=== PATIENT | female | born 1965 | race Caucasian/White ===

== ENCOUNTER → 2016-07-08 | Outpatient (CLI) | payer OTHER ==
[2015-03-20 08:35] VITALS: BP 137/66
[~2016-07-08] MED LIST: BLACK COHOSH PO; CALC-507 PO; CYAN10005 PO; DOCU-27 PO; GARL10002 PO; MONT10TA6 PO; MULT-245 PO; OMEG1CAP28 PO; ONDA4TAB7 PO; OXYC-323 PO; TRAM50TA PO
[2016-07-08 08:17] LABS: ALBUMIN 3.2 g/dL (3.4-5.0); ALBUMIN/GLOBULIN RATIO 1.1 (1.0-1.7); CALCIUM 8.5 mg/dL (8.5-10.1); CREATININE 0.8 mg/dL (0.6-1.0); GFR 75.9; POTASSIUM 4.2 mmol/L (3.5-5.1); TOTAL BILIRUBIN 0.2 mg/dL (0.2-1.0); TOTAL PROTEIN 6.2 g/dL (6.4-8.2)
[2016-07-08 08:23] LABS: CHOLESTEROL/HDL RATIO 4.9
[2016-07-08 12:21] LABS: ESTRADIOL LEVEL 19.9 pg/mL (.); PROGESTERONE 1.5 ng/mL (.)
[2016-07-09 03:15] LABS: VITAMIN D25(OH)TOTAL 37.2 ng/mL (30.0-100.0)
[2016-07-12 13:19] LABS: % FREE TESTOSTERONE 1.54 % (0.50-2.80); TESTOSTERONE TOTAL 26 ng/dL (3-41)
== END | disposition home or self-care (01) ==
LOC: LAB 07:35
PROVIDERS: ATTEND Nurse Practitioner Women's Health
DX: Z13.1 Encounter for screening for diabetes mellitus (principal); N95.9 Unspecified menopausal and perimenopausal disorder; I10 Essential (primary) hypertension; E78.00 Pure hypercholesterolemia, unspecified; E55.9 Vitamin D deficiency, unspecified
CPT/HCPCS: 36415; 80053; 80061; 82306; 82670; 82679; 83036; 83525; 84144; 84402; 84403

== ENCOUNTER → 2017-01-05 | Outpatient (CLI) | payer OTHER ==
[2015-03-20 08:35] VITALS: BP 137/66
[~2017-01-05] MED LIST changes: +DOCU-109 PO; -DOCU-27 PO
== END | disposition home or self-care (01) ==
LOC: SPEC 15:13
DX: N76.4 Abscess of vulva (principal)
CPT/HCPCS: 87071; 87075; 87205

== ENCOUNTER → 2017-01-07 | Outpatient (CLI) | payer OTHER ==
[2015-03-20 08:35] VITALS: BP 137/66
--- NOTE | 2017-01-10 11:54 | RAD ---
DATE: 01/07/17 EXAM: DIGITAL SCREEN BILAT W/CAD HISTORY: Routine screening COMPARISON: 09/26/15 This study was interpreted with the benefit of Computerized Aided Detection (CAD). TECHNIQUE: Routine digital CC and MLO views of both breasts are obtained. FINDINGS: Breast Density: HETERO The breast parenchyma is heterogeneously dense, which could reduce sensitivity of mammography. Breast parenchyma level C.. There is a increasing group of calcification in the left retroareolar breast, approximately 3 cm from the nipple. Interval decrease in size of previously seen nodule in the left breast consistent with decrease in size of cysts. IMPRESSION: Suspicious calcifications in the left breast. Evaluation with CC and MLO spot magnification views may be obtained. BI-RADS CATEGORY: 0 INCOMPLETE: NEED ADDITIONAL IMAGING EVALUATION AND/OR PRIOR MAMMOGRAMS FOR COMPARISON. Spot magnification CC and MLO views RECOMMENDED FOLLOW-UP: ADD ADDITIONAL IMAGING PQRS compliance statement: Patient information was entered into a reminder system with a target due date for the next mammogram. Mammography is a sensitive method for finding small breast cancers, but it does not detect them all and is not a substitute for careful clinical examination. A negative mammogram does not negate a clinically suspicious finding and should not result in delay in biopsying a clinically suspicious abnormality. "Our facility is accredited by the [employer] Mammography Program."
== END | disposition home or self-care (01) ==
LOC: MAMMO 09:58
PROVIDERS: ATTEND Family Medicine
DX: Z12.31 Encounter for screening mammogram for malignant neoplasm of breast (principal)
CPT/HCPCS: G0202; 77067

== ENCOUNTER → 2017-01-20 | Outpatient (CLI) | payer OTHER ==
[2015-03-20 08:35] VITALS: BP 137/66
[2017-01-20 14:39] LABS: FREE T4 0.96 ng/dL (0.76-1.46)
--- NOTE | 2017-01-23 08:39 | RAD ---
DATE: 01/20/2017 EXAM: DIGITAL DIAGNOSTIC LT HISTORY: Indeterminate calcifications on screening COMPARISON: Screening examination 01/07/2017 FINDINGS: Breast Density: . Coned compression magnification views targeted to the central calcifications in the left breast were obtained as well as an ML view. Known calcifications are reproduced. The calcifications are minimally suspicious. Stereotactic biopsy is recommended. The findings and recommendation for biopsy were communicated by me to the patient. IMPRESSION: Indeterminate calcifications left breast. Biopsy under stereotactic guidance recommended. BI-RADS CATEGORY: 4 SUSPICIOUS ABNORMALITY-BIOPSY SHOULD BE CONSIDERED RECOMMENDED FOLLOW-UP: BIO BIOPSY RECOMMENDED PQRS compliance statement: Patient information was entered into a reminder system with a target due date soon for the next mammogram. Mammography is a sensitive method for finding small breast cancers, but it does not detect them all and is not a substitute for careful clinical examination. A negative mammogram does not negate a clinically suspicious finding and should not result in delay in biopsying a clinically suspicious abnormality. "Our facility is accredited by the [employer] Mammography Program." DEMETRIOD
== END | disposition home or self-care (01) ==
LOC: MAMMO 13:21
PROVIDERS: ATTEND Family Medicine
DX: R92.8 Other abnormal and inconclusive findings on diagnostic imaging of breast (principal); L65.9 Nonscarring hair loss, unspecified
CPT/HCPCS: 36415; 84439; 84443; G0206; 77065

== ENCOUNTER → 2017-02-22 | Outpatient (CLI) | payer OTHER ==
[2015-03-20 08:35] VITALS: BP 137/66
[~2017-02-22] MED LIST changes: +CHOL500016 PO; +FISH1CAP PO; +GEMF600T3 PO; +LIDOCAINE 1% / SOD BICARB 8.4% 20 ML VIAL. IJ ONE; +LIDOCAINE 2%/EPI 1:100,000 20 ML VIAL. IJ ONE; +MAGN400C PO; +MULTIVITAMIN PO; +PROG200C2 PO; +[UNRECOGNIZED DRUG - OTHER] PO; +[UNRECOGNIZED DRUG - REMARK] PO
--- NOTE | 2017-02-22 09:52 | RAD ---
EXAM: 1. Stereotactically guided biopsy of left breast microcalcifications with clip placement. 2. Digital left postclip mammography. HISTORY: Indeterminate left breast microcalcifications. Stereotactic biopsy is requested. FINDINGS: The procedure along with its risks and benefits were explained to the patient. She agreed to proceed. A timeout procedure was performed. The patient's prior mammography was reviewed. The target calcifications centrally in the left breast were targeted stereotactically. The overlying skin was sterilely prepped and infiltrated with 1% lidocaine for local anesthesia. The deeper tissues were infiltrated with 2% lidocaine with epinephrine for local anesthesia and hemostasis. Under stereotactic guidance, a 9 gauge vacuum-assisted core biopsy system was advanced to the target calcifications. 6 core specimens were obtained. A specimen radiograph demonstrates the targeted calcifications within the specimen. A postbiopsy clip was placed. Instrumentation was withdrawn and pressure held to hemostasis. There were no complications. Digital mammographic images were obtained on the left in the CC and MLO projections, and interpreted on a dedicated mammographic workstation. The postbiopsy clip is slightly superior to the target calcifications, and likely migrated slightly after deployment. Some of the target calcifications in been removed. IMPRESSION: 1. Successful stereotactic biopsy of left breast microcalcifications. 2. The postbiopsy clip corresponds with the target calcifications.
--- NOTE | 2017-02-24 15:00 | PATHOLOGY ---
PATHOLOGY REPORT * * * * * * * * FINAL DIAGNOSIS: Breast tissue, left breast needle biopsies: - Intraductal papillomas with focal sclerosis, florid ductal epithelial hyperplasia, and apocrine metaplasia. - Calcifications identified. COMMENT: There are focal calcifications associated with the papilloma and surrounding breast tissue. There is no atypia or evidence of malignancy. (JPM:; 02/24/2017) REPORT ELECTRONICALLY SIGNED BY: Evert Campos M.D. DATE/TIME: 02/24/2017 15:00 * * * * * * * * GROSS PATHOLOGY: Received in formalin, in an orange cassette, labeled "Parul Diaz, left breast calcifications," are multiple needle cores of yellow-merida fibrofatty tissue measuring 2.0 x 1.1 x 0.7 cm in aggregate dimensions. The tissue is submitted in its entirety in cassette A1 and A2. The cold ischemic time is 10 minute. The total formalin fixation time is 12 hours 50 minutes. (TSD; 02/22/2017) INITIAL CPT CODE(S): A; 99304 Professional services performed by [facility] [place] [address] Technical services performed by [facility] at [address] [place] [address], [place] [address]. Dr. Prater, [facility] Radiology fax: [phone] SPECIMEN(S) RECEIVED: A.Left breast calcifications CLINICAL HISTORY: Left breast microcalcifications PATIENT: PARUL DIAZ /AGE: 912/29/1965 (Age: 51) PATIENT #: [id number] ALT CASE #: SPECIMEN COLLECTION DATE: 02/22/2017 SPECIMEN RECEIVED DATE: 02/22/2017 [facility] - [address] [place] [address] - PHONE: [phone] * * * END OF REPORT * * *
== END | disposition home or self-care (01) ==
LOC: MAMMO 07:30
PROVIDERS: ATTEND Surgery
DX: R92.0 Mammographic microcalcification found on diagnostic imaging of breast (principal); R92.1 Mammographic calcification found on diagnostic imaging of breast
CPT/HCPCS: 19085; 77022; C1713; G0206; J3490; 88305; 77065

== ENCOUNTER → 2017-05-22 | Outpatient (CLI) | payer OTHER ==
[2017-05-22 12:36] LABS: CHOLESTEROL 214 mg/dL (0-200); CHOLESTEROL/HDL RATIO 4.9; HDLC 44 mg/dL (40-60); LDLC 130 mg/dL (0-100); NON-HDL CHOLESTEROL 170 mg/dL (0-129); TRIGLYCERIDES 198 mg/dL (0-150); VLDLC 40 mg/dL (0-40)
[2017-05-22 22:13] LABS: ESTRADIOL LEVEL 97.8 pg/mL (.)
[2017-05-22 22:13] LABS: PROGESTERONE 2.6 ng/mL (.)
[2017-05-24 13:22] LABS: ESTRONE LEVEL 247 pg/mL (.)
[2017-05-26 08:25] LABS: % FREE TESTOSTERONE 1.47 % (0.50-2.80); TESTOSTERONE FREE 0.49 (0.10-0.85); TESTOSTERONE TOTAL 33 ng/dL (3-41)
== END | disposition home or self-care (01) ==
LOC: LAB 11:15
DX: E78.5 Hyperlipidemia, unspecified (principal); N95.9 Unspecified menopausal and perimenopausal disorder; E55.9 Vitamin D deficiency, unspecified
CPT/HCPCS: 36415; 80061; 82306; 82670; 82679; 84144; 84402; 84403

== ENCOUNTER 2017-06-16 07:32 | Day surgery (SDC) | payer OTHER ==
[~2017-06-16 07:32] MED LIST changes: -BLACK COHOSH PO; -CALC-507 PO; -CHOL500016 PO; -CYAN10005 PO; -DOCU-109 PO; -FISH1CAP PO; -GARL10002 PO; -GEMF600T3 PO; -LIDOCAINE 1% / SOD BICARB 8.4% 20 ML VIAL. IJ ONE; +LIDOCAINE 1% PF 2 ML VIAL. ID; -LIDOCAINE 2%/EPI 1:100,000 20 ML VIAL. IJ ONE; -MAGN400C PO; -MONT10TA6 PO; +MORPHINE SULFATE 2 MG/ML DISP.SYRIN. IV; -MULT-245 PO; -MULTIVITAMIN PO; -OMEG1CAP28 PO; -ONDA4TAB7 PO; +ONDANSETRON PF 4 MG/2 ML VIAL. IV; -OXYC-323 PO; +PROCHLORPERAZINE 10 MG/2 ML VIAL. IV; -PROG200C2 PO; -TRAM50TA PO; -[UNRECOGNIZED DRUG - OTHER] PO; -[UNRECOGNIZED DRUG - REMARK] PO; +ceFAZolin 2GM PREMIX 2 GM/50 ML BAG IV; +fentaNYL PF VIAL 100 MCG/2 ML VIAL IV
[2017-06-16] MEDS: LIDOCAINE WITH 8.4% SOD BICARB 3 ML DISP.SYRIN. INJ (08:15)
[2017-06-16] MEDS: IV RINGERS,LACTATED 1000ML 1,000 ML IV (08:48)
[2017-06-16] MEDS ORDERED: PROPOFOL 20 ML IV (10:53)
[2017-06-16] MEDS ORDERED: ONDANSETRON PF 4 MG/2 ML VIAL. (10:53)
[2017-06-16] MEDS ORDERED: FAMOTIDINE 20 MG/2 ML VIAL (10:53)
[2017-06-16] MEDS ORDERED: DEXAMETHASONE SOD PHOS 20 MG/5 ML VIAL. (10:53)
[2017-06-16] MEDS ORDERED: MIDAZOLAM HCL/PF 2 MG/2 ML VIAL. (10:54)
[2017-06-16] MEDS ORDERED: fentaNYL PF VIAL 100 MCG/2 ML VIAL (10:54)
[2017-06-16] MEDS: BUPIVAC MPF-EPI 0.5%-1:200000 30 ML VIAL. INJ (11:24)
[2017-06-16] MEDS ORDERED: SEVOFLURANE 31 TO 60 MINUTES. IH (11:46)
[2017-06-16] MEDS: fentaNYL PF VIAL 100 MCG/2 ML VIAL IV ×2 (12:19→12:25)
[2017-06-16] MEDS: oxyCODONE/APAP 5/325 1 TAB TABLET PO (13:07)
== END 2017-06-16 13:35 | disposition home or self-care (01) ==
LOC: SURG 07:32
DX: D24.2 Benign neoplasm of left breast (principal); J03.80 Acute tonsillitis due to other specified organisms; E78.00 Pure hypercholesterolemia, unspecified; M19.90 Unspecified osteoarthritis, unspecified site; F17.200 Nicotine dependence, unspecified, uncomplicated; Z91.018 Allergy to other foods; Z79.82 Long term (current) use of aspirin; Z79.899 Other long term (current) drug therapy; Z98.890 Other specified postprocedural states
CPT/HCPCS: 19281; 76098; C1769; J0690; J1100; J2250; J2405; J2704; J3010; J3490; S0028

== ENCOUNTER → 2017-08-18 | Outpatient (CLI) | payer OTHER ==
[2017-08-19 01:19] LABS: ESTRADIOL LEVEL 57.3 pg/mL (.); TESTOSTERONE TOTAL 17 ng/dL (3-41)
== END | disposition home or self-care (01) ==
LOC: LAB 15:09
DX: L65.9 Nonscarring hair loss, unspecified (principal); Z78.0 Asymptomatic menopausal state
CPT/HCPCS: 36415; 82670; 84144; 84403

== ENCOUNTER → 2017-12-22 | Outpatient (CLI) | payer OTHER ==
[2017-06-16 13:25] VITALS: BP 134/67
[~2017-12-22] MED LIST changes: +ASPI-482 PO; +BLACK COHOSH PO; +CALC-507 PO; +CHOL500016 PO; +CYAN10005 PO; +DOCU-109 PO; +ESTR0.5T PO; +FISH1CAP PO; +GARL10002 PO; +GEMF600T4 PO; -LIDOCAINE 1% PF 2 ML VIAL. ID; +MAGN400C PO; +MONT10TA6 PO; -MORPHINE SULFATE 2 MG/ML DISP.SYRIN. IV; +MULT-121 PO; +MULT-245 PO; +MULTIVITAMIN PO; +OMEG1CAP28 PO; +OMEG1CAP6 PO; +ONDA4TAB7 PO; -ONDANSETRON PF 4 MG/2 ML VIAL. IV; +OXYC-323 PO; +PRAS1TAB PO; -PROCHLORPERAZINE 10 MG/2 ML VIAL. IV; +PROG200C15 PO; +PROG200C2 PO; +TEST5GEL TP; +TRAM50TA PO; +[UNRECOGNIZED DRUG - OTHER] PO; +[UNRECOGNIZED DRUG - REMARK] PO; -ceFAZolin 2GM PREMIX 2 GM/50 ML BAG IV; -fentaNYL PF VIAL 100 MCG/2 ML VIAL IV
--- NOTE | 2017-12-22 13:47 | RAD ---
DATE: 12/22/2017 EXAM: MAMMO PARIS DIAG LT HISTORY: Follow-up benign biopsy COMPARISON: 01/07/2017, 02/22/2017 This study was interpreted with the benefit of Computerized Aided Detection (CAD). Breast Density: HETERO The breast parenchyma is heterogenously dense, which could reduce sensitivity of mammography. Breast parenchyma level C. FINDINGS: 2-D and 3-D tomosynthesis imaging was performed in CC and MLO projections. Previously seen central left breast calcifications have been removed. The fibroglandular tissues are heterogeneous and somewhat nodular in character. No new or enlarging breast densities are seen. No suspicious microcalcifications are evident. IMPRESSION: Stable left mammograms without evidence of malignancy. Follow-up bilateral mammography in 6 months and that yearly intervals is suggested. BI-RADS CATEGORY: 2 BENIGN FINDING(S) RECOMMENDED FOLLOW-UP: 12M 12 MONTH FOLLOW-UP PQRS compliance statement: Patient information was entered into a reminder system with a target due date for the next mammogram. Mammography is a sensitive method for finding small breast cancers, but it does not detect them all and is not a substitute for careful clinical examination. A negative mammogram does not negate a clinically suspicious finding and should not result in delay in biopsying a clinically suspicious abnormality. "Our facility is accredited by the [employer] Mammography Program."
== END | disposition home or self-care (01) ==
LOC: MAMMO 13:03
PROVIDERS: ATTEND Surgery
DX: R92.8 Other abnormal and inconclusive findings on diagnostic imaging of breast (principal); E55.9 Vitamin D deficiency, unspecified; I10 Essential (primary) hypertension; E78.00 Pure hypercholesterolemia, unspecified; E78.5 Hyperlipidemia, unspecified
CPT/HCPCS: 77065; G0279; 77061

== ENCOUNTER → 2018-03-09 | Outpatient (CLI) | payer OTHER ==
[2017-06-16 13:25] VITALS: BP 134/67
[~2018-03-09] MED LIST changes: -GEMF600T4 PO; +GEMF600T8 PO; -OXYC-323 PO; +OXYC1TAB15 PO
[2018-03-09 08:01] LABS: BASO # 0.1 x10^3/uL (0.0-0.2); BASO % 1 % (0-3); EOS # 0.2 x10^3/uL (0.0-0.7); EOS % 2 % (0-3); HEMATOCRIT 43.4 % (36.0-47.0); HEMOGLOBIN 15.2 g/dL (12.0-15.5); LYMPH # 1.4 x10^3/uL (1.0-4.8); LYMPH % 14 % (24-48); MEAN CORPUSCULAR HEMOGLOBIN 32 pg (25-35); MEAN CORPUSCULAR HGB CONC 35 g/dL (31-37); MEAN CORPUSCULAR VOLUME 92 fL (79-100); MONO # 0.7 x10^3/uL (0.0-1.1); MONO % 7 % (0-9); NEUT # 7.6 x10^3uL (1.8-7.7); NEUT % 76 % (31-73); PLATELET COUNT 350 x10^3/uL (140-400); RED CELL DISTRIBUTION WIDTH 13.4 % (11.5-14.5)
[2018-03-09 08:41] LABS: ALBUMIN 1.3 g/dL (3.4-5.0); ALBUMIN/GLOBULIN RATIO 0.3 (1.0-1.7); CALCIUM 7.7 mg/dL (8.5-10.1); CREATININE 0.5 mg/dL (0.6-1.0); GFR 129.6; POTASSIUM 3.7 mmol/L (3.5-5.1); TOTAL BILIRUBIN 0.2 mg/dL (0.2-1.0); TOTAL PROTEIN 5.7 g/dL (6.4-8.2)
[2018-03-09 08:42] LABS: CHOLESTEROL/HDL RATIO 1.8
[2018-03-09 08:55] LABS: FREE T4 1.05 ng/dL (0.76-1.46); THYROID STIM HORMONE (TSH) 2.06 uIU/mL (0.358-3.74)
[2018-03-09 12:19] LABS: ESTRADIOL LEVEL 11.5 pg/mL (.)
[2018-03-09 23:11] LABS: HEMOGLOBIN A1C 5.7 % (4.8-5.6)
== END | disposition home or self-care (01) ==
LOC: LAB 07:35
PROVIDERS: ATTEND Nurse Practitioner Women's Health
DX: Z13.1 Encounter for screening for diabetes mellitus (principal); E78.5 Hyperlipidemia, unspecified; E55.9 Vitamin D deficiency, unspecified; E66.3 Overweight; R53.83 Other fatigue; Z79.890 Hormone replacement therapy
CPT/HCPCS: 36415; 80053; 80061; 82306; 82652; 82670; 83036; 84144; 84402; 84403; 84439; 84443; 84481; 85025

== ENCOUNTER → 2019-02-12 | Outpatient (CLI) | payer OTHER ==
[2017-06-16 13:25] VITALS: BP 134/67
[~2019-02-12] MED LIST changes: +CYAN-25 PO; -CYAN10005 PO; +MONT10TA49 PO; -MONT10TA6 PO; +PROG200C10 PO; -PROG200C2 PO
[2019-02-12 07:57] LABS: BASO # 0.1 x10^3/uL (0.0-0.2); BASO % 1 % (0-3); EOS # 0.2 x10^3/uL (0.0-0.7); EOS % 2 % (0-3); HEMATOCRIT 46.6 % (36.0-47.0); HEMOGLOBIN 16.1 g/dL (12.0-15.5); LYMPH # 1.6 x10^3/uL (1.0-4.8); LYMPH % 18 % (24-48); MEAN CORPUSCULAR HEMOGLOBIN 32 pg (25-35); MEAN CORPUSCULAR HGB CONC 35 g/dL (31-37); MEAN CORPUSCULAR VOLUME 92 fL (79-100); MONO # 0.5 x10^3/uL (0.0-1.1); MONO % 6 % (0-9); NEUT # 6.5 x10^3/uL (1.8-7.7); NEUT % 73 % (31-73); PLATELET COUNT 295 x10^3/uL (140-400); RED BLOOD COUNT 5.05 x10^6/uL (3.50-5.40); RED CELL DISTRIBUTION WIDTH 13.3 % (11.5-14.5); WHITE BLOOD COUNT 8.9 x10^3/uL (4.0-11.0)
[2019-02-12 08:13] LABS: ALBUMIN 4.2 g/dL (3.4-5.0); CALCIUM 9.2 mg/dL (8.5-10.1); CREATININE 0.8 mg/dL (0.6-1.0); POTASSIUM 4.5 mmol/L (3.5-5.1); TOTAL BILIRUBIN 0.3 mg/dL (0.2-1.0); TOTAL PROTEIN 8.4 g/dL (6.4-8.2)
[2019-02-12 08:14] LABS: CHOLESTEROL/HDL RATIO 5.1
[2019-02-12 09:30] LABS: FREE T4 0.89 ng/dL (0.76-1.46); THYROID STIM HORMONE (TSH) 1.215 uIU/mL (0.358-3.74)
[2019-02-12 20:08] LABS: ESTRADIOL LEVEL 9.5 pg/mL (.); PROGESTERONE 2.4 ng/mL (.)
== END | disposition home or self-care (01) ==
LOC: LAB 07:35
PROVIDERS: ATTEND Nurse Practitioner Women's Health
DX: N95.9 Unspecified menopausal and perimenopausal disorder (principal); E03.9 Hypothyroidism, unspecified; R53.83 Other fatigue; E78.5 Hyperlipidemia, unspecified; E55.9 Vitamin D deficiency, unspecified; Z79.899 Other long term (current) drug therapy
CPT/HCPCS: 36415; 80053; 80061; 82306; 82627; 82670; 84144; 84402; 84403; 84439; 84443; 84481; 85025

== ENCOUNTER → 2019-02-19 | Outpatient (CLI) | payer OTHER ==
[2017-06-16 13:25] VITALS: BP 134/67
--- NOTE | 2019-02-19 09:10 | RAD ---
DATE: 02/19/2019. EXAM: MAMMO PARIS DIAG BILAT. HISTORY: Routine mammographic screening. COMPARISON: 12/22/2017, 01/07/2017. This study was interpreted with the benefit of Computerized Aided Detection (CAD). FINDINGS: Breast Density: HETERO The breast parenchyma is heterogenously dense, which could reduce sensitivity of mammography. Breast parenchyma level C.. Circumscribed and obscured nodules bilaterally have stable correlates. Architectural distortion centrally on the left corresponds with the site of prior excisional biopsy. There are no suspicious masses, microcalcifications or architectural distortion. BI-RADS CATEGORY: 2 BENIGN FINDING(S). RECOMMENDED FOLLOW-UP: 12M 12 MONTH FOLLOW-UP. PQRS compliance statement: Patient information was entered into a reminder system with a target due date 02/20/2020 for the next mammogram. Mammography is a sensitive method for finding small breast cancers, but it does not detect them all and is not a substitute for careful clinical examination. A negative mammogram does not negate a clinically suspicious finding and should not result in delay in biopsying a clinically suspicious abnormality. "Our facility is accredited by the [employer] Mammography Program."
== END | disposition home or self-care (01) ==
LOC: MAMMO 07:59
PROVIDERS: ATTEND Nurse Practitioner Women's Health
DX: N63.20 Unspecified lump in the left breast, unspecified quadrant (principal); N63.10 Unspecified lump in the right breast, unspecified quadrant
CPT/HCPCS: 77066; G0279; 77062

== ENCOUNTER → 2020-06-19 | Day surgery (SDC) | payer OTHER ==
[~2020-06-19] MED LIST changes: +GEMF600T20 PO; -GEMF600T8 PO; +HYDROmorphone 2 MG/ML VIAL IVP PRN; +IV RINGERS,LACTATED 1000ML 1,000 ML IV SCH; +LIDOCAINE 2% PF 5 ML VIAL. ONE; +MORPHINE SULFATE 2 MG/ML VIAL. IVP PRN; +PROCHLORPERAZINE 10 MG/2 ML VIAL. IVP PRN; +PROPOFOL 10 MG/ML (20ML) VIAL. IV ONE; +THYR30TA PO
[2020-06-19 09:44] VITALS: BP 118/62
== END | disposition home or self-care (01) ==
LOC: SURG 07:52
PROVIDERS: ATTEND Internal Medicine Gastroenterology
DX: Z12.11 Encounter for screening for malignant neoplasm of colon (principal); K64.0 First degree hemorrhoids; K57.30 Diverticulosis of large intestine without perforation or abscess without bleeding; E78.00 Pure hypercholesterolemia, unspecified; M19.90 Unspecified osteoarthritis, unspecified site; E03.9 Hypothyroidism, unspecified; Z98.51 Tubal ligation status; Z98.890 Other specified postprocedural states; Z79.899 Other long term (current) drug therapy; Z87.891 Personal history of nicotine dependence; Z72.89 Other problems related to lifestyle; Z88.8 Allergy status to other drugs, medicaments and biological substances; Z20.822 Contact with and (suspected) exposure to COVID-19
CPT/HCPCS: 45378; 87426; C9803; J2704; U0003

== ENCOUNTER → 2021-01-27 | Outpatient (CLI) | payer OTHER ==
[2020-06-19 09:44] VITALS: BP 118/62
[~2021-01-27] MED LIST changes: -HYDROmorphone 2 MG/ML VIAL IVP PRN; -IV RINGERS,LACTATED 1000ML 1,000 ML IV SCH; -LIDOCAINE 2% PF 5 ML VIAL. ONE; -MORPHINE SULFATE 2 MG/ML VIAL. IVP PRN; -PROCHLORPERAZINE 10 MG/2 ML VIAL. IVP PRN; -PROPOFOL 10 MG/ML (20ML) VIAL. IV ONE
[2021-01-27 13:09] LABS: FREE T4 0.83 ng/dL (0.76-1.46); THYROID STIM HORMONE (TSH) 0.756 uIU/mL (0.358-3.74)
== END ==
LOC: LAB 12:02
PROVIDERS: ATTEND Registered Nurse
DX: E03.9 Hypothyroidism, unspecified (principal)
CPT/HCPCS: 36415; 84436; 84439; 84443; 84481

== ENCOUNTER → 2021-03-05 | Outpatient (CLI) | payer OTHER ==
[2020-06-19 09:44] VITALS: BP 118/62
== END ==
LOC: SPEC 10:18
PROVIDERS: ATTEND Registered Nurse
DX: N95.0 Postmenopausal bleeding (principal)
CPT/HCPCS: 88305

== ENCOUNTER → 2021-03-08 | Outpatient (CLI) | payer OTHER ==
[2020-06-19 09:44] VITALS: BP 118/62
--- NOTE | 2021-03-08 17:51 | RAD ---
EXAMINATION: US PELVIS W/TV, 03/08/2021 9:36 AM CLINICAL INDICATION: Postop possible bleeding TECHNIQUE: Grayscale, color and spectral Doppler ultrasound images of the pelvis via transabdominal a nd transvaginal approach. COMPARISON: None. FINDINGS: The uterus measures 6.5 x 4.5 x 3.8 cm. The endometrial stripe measures 8-10 mm in thickness. There i s a 1.7 x 1.9 x 1.4 cm heterogeneous mass in the anterior fundus, likely a fibroid. The right ovary measures 2.1 x 0.8 x 0.8 cm. The left ovary measures 2.0 x 1.2 x 2.6 cm. Normal ovari an blood flow bilaterally. There is fluid-filled bowel the pelvis. No adnexal mass or definite free fluid. IMPRESSION: 1. 1.9 cm myometrial mass, likely fibroid. 2. The endometrial measures about 8 to 10 mm in thickness. This is abnormally thickened for a postmen opausal patient and can be seen with endometrial hyperplasia. Correlate with tissue sampling. Electronically signed by: Lindsey Angelo MD (03/08/2021 5:49 PM) [id number]
== END ==
LOC: US 09:35
PROVIDERS: ATTEND Registered Nurse
DX: N85.00 Endometrial hyperplasia, unspecified (principal); N95.0 Postmenopausal bleeding
CPT/HCPCS: 76830; 76856

== ENCOUNTER 2021-04-09 06:30 | Day surgery (SDC) | payer OTHER ==
[~2021-04-09] VITALS: Ht 162.6 cm; Wt 75.0 kg
[~2021-04-09 06:30] MED LIST changes: +ESTR1TAB22 PO; +HYDROmorphone 2 MG/ML INJ. IVP PRN; +IV RINGERS,LACTATED 1000ML 1,000 ML IV SCH; +MORPHINE SULFATE 2 MG/ML INJ. IVP PRN; +PROCHLORPERAZINE 10 MG/2 ML VIAL. IVP PRN; +fentaNYL PF VIAL 100 MCG/2 ML VIAL IVP PRN
[2021-04-09 06:58] VITALS: BP 123/58
[2021-04-09] MEDS ORDERED: fentaNYL PF VIAL 100 MCG/2 ML VIAL ONE ×2 (07:13→08:46)
[2021-04-09] MEDS ORDERED: DEXAMETHASONE SOD PHOS 4 MG/ML VIAL ONE (07:13)
[2021-04-09] MEDS ORDERED: KETOROLAC 30 MG/ML VIAL. ONE (07:13)
[2021-04-09] MEDS ORDERED: ONDANSETRON PF 4 MG/2 ML VIAL. ONE (07:13)
[2021-04-09] MEDS ORDERED: PROPOFOL 10 MG/ML (20ML) VIAL. IV ONE (07:13)
[2021-04-09] MEDS ORDERED: FAMOTIDINE 20 MG/2 ML VIAL ONE (07:13)
[2021-04-09] MEDS ORDERED: MIDAZOLAM HCL/PF 2 MG/2 ML VIAL. ONE (07:14)
[2021-04-09 07:17] LABS: BASO % 1 % (0-3); EOS # 0.2 x10^3/uL (0.0-0.7); EOS % 3 % (0-3); HEMATOCRIT 43.6 % (36.0-47.0); HEMOGLOBIN 15.1 g/dL (12.0-15.5); LYMPH # 1.9 x10^3/uL (1.0-4.8); LYMPH % 27 % (24-48); MEAN CORPUSCULAR HEMOGLOBIN 31 pg (25-35); MEAN CORPUSCULAR HGB CONC 35 g/dL (31-37); MEAN CORPUSCULAR VOLUME 90 fL (79-100); MONO # 0.5 x10^3/uL (0.0-1.1); MONO % 8 % (0-9); NEUT # 4.2 x10^3/uL (1.8-7.7); NEUT % 62 % (31-73); PLATELET COUNT 288 x10^3/uL (140-400); RED BLOOD COUNT 4.83 x10^6/uL (3.50-5.40); WHITE BLOOD COUNT 6.9 x10^3/uL (4.0-11.0)
--- NOTE | 2021-04-09 07:30 | PDOC1 ---
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 The pt was seen on 03/15/21 for eval and tx of PMB. The pt has been on ERT/HRT for the last 5yrs. She has been on injection of estradiol and testosterone traditionally. She was recently switched to PO HRT with her new provider. During that visit the pt reported PMB off and on the last year and half. She underwent an u/s revealing an endometrial stripe of 8-10 mm and a 1.9 myometrial mass. She underwent an EMB revealing benign disordered proliferative endometrium; negative for hyperplasia, atypia or malignancy. The pt was referred for H/S, D&C. Discussed the procedure with pt and possible myosure along with H/S. Explained that it would be determined by location of the fibroids. PMH: Meniscal tear, Dyslipidemia, HLD, HTN, Seasonal allergies, Hot flashes, Hx of hemorrhoids. PSH: tonsillectomy , section 03/1993, tubal ligation 1997, benign growth removed from vocal cord , meniscus 10/2010, wisdom teeth extraction 30 years ago , right shoulder arthroscopic labral repair and biceps tenodesis , Left br mass w/NL 06/16/17. Meds: Covaryx, MVI, Vitamin B12, gemfibrozil, Vitamin D3, fish oil, Progesterone, magnesium, Cytotec All: Raw Startch: Itching, Rag Panacea: Sneezing. OBHx: 3 x TSVD, 1 x TC/S. 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 Medications: Meds: Current Medications Medications (Trade) Dose Ordered Sig/Dre Route PRN Reason Start Time Stop Time Status Last Admin Dose Admin Ringer's Solution 1,000 ml @ 30 mls/hr Q24H IV 04/09/21 06:00 04/09/21 17:59 04/09/21 07:01 Allergies: Coded Allergies: avocado (Verified Allergy, Intermediate, ITCHY MOUTH, 04/09/21) potato (Verified Allergy, Intermediate, 'RAW POTATO" ITCHY MOUTH, 04/09/21) Physical Exam: Vital Signs: Vital Signs Date Time Temp Pulse Resp B/P (MAP) Pulse Ox O2 Delivery O2 Flow Rate FiO2 04/09/21 06:58 97.9 69 97 97.9 04/09/21 06:52 14 123/58 Room Air PE: GENERAL: No apparent distress. Alert and oriented. HEENT: Head normocephalic, atraumatic. NECK: Supple LUNGS: Clear to auscultation. HEART: RRR, S1, S2 present, pulses intact ABDOMEN: Soft, positive bowel sounds. EXTREMITIES: No cyanosis or edema. NEUROLOGIC: Normal speech, normal tone PSYCHIATRIC: Normal affect, normal mood. SKIN: No ulceration. Assessment & Plan: A/P 55y with PMB 1.) PMB - on HRT. Has been off and on for last 1.5 yrs. U/s - endometrial stripe of 8-10 mm. EMB - benign. Will schedule for H/S, D&C, myosure. 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
[2021-04-09] MEDS ORDERED: ePHEDrine PF IN SALINE 50 MG/10 ML SYRINGE. IV ONE (08:16)
--- NOTE | 2021-04-09 08:46 | PDOC4 ---
OPERATIVE NOTE: PreOp Dx: 1.) PMB, 2.) Fibroids, 3.) Menopause, 4.) Hypothyroidism, 5.) Tob use PostOp Dx: same, endometrial polyp Procedure: H/S, Myosure, D&C Surgeon: Judy Concepcion Anesthesia: GETA EBL: 25 cc Fluids: 600 cc Findings: fibroid, endometrial polyp Complications: none Path: Endometrial polyp, fibroid, and endometrial curetting RAMYA CONCEPCION MD Apr 09, 2021 08:46
[2021-04-09] MEDS ORDERED: IBUP-1060 PO (08:58)
[2021-04-09] MEDS ORDERED: OXYC1TAB15 PO (08:58)
--- NOTE | 2021-04-09 09:18 | OP ---
DATE OF SURGERY: 04/09/2021 PREOPERATIVE DIAGNOSES: 1. Postmenopausal bleeding. 2. Fibroid. 3. Menopause. 4. Hypothyroidism. 5. Tobacco use. POSTOPERATIVE DIAGNOSES: 1. Postmenopausal bleeding. 2. Fibroid. 3. Menopause. 4. Hypothyroidism. 5. Tobacco use. 6. Endometrial polyp. PROCEDURES: Hysteroscopy, MyoSure and D and C. SURGEON: Justin Hernandez MD ANESTHESIA: LMA. ESTIMATED BLOOD LOSS: 25 mL FLUIDS: 600 mL FINDINGS: Fibroids and endometrial polyp. COMPLICATIONS: None. PATHOLOGY: Endometrial polyp, fibroid, endometrial curetting. DESCRIPTION OF PROCEDURE: The patient was taken to the operating room where LMA was placed without difficulty. The patient was prepped and draped in normal sterile fashion. Speculum was placed in the patient's vagina to visualize the cervix. A single tooth tenaculum was then placed on the anterior lip of the cervix. The cervix was dilated to allow for the hysteroscope to be placed. Once the hysteroscope was entered into the endometrial cavity, there was an endometrial polyp covering the left os at approximately 3 o'clock. There was also a fibroid just past the cervix on the anterior surface of the uterus roughly at 10 o'clock. Both lesions appeared to be benign. At that point, the MyoSure device was used to remove the endometrial polyp and then shave down the fibroid. Once this was accomplished, the MyoSure was removed and a curettage was performed. At that point, the procedure was terminated. The tenaculum was removed with minimal bleeding at the tenaculum site. Good hemostasis was noted. The patient was then taken to the recovery room in stable condition. KIM DR: Nehal TID: [id number]
[2021-04-09 09:27] VITALS: BP 144/66
--- NOTE | 2021-04-12 14:07 | PATHOLOGY ---
[facility] Accession Number: [id number] . 01 Material submitted: . endometrium - ENDOMETRIAL POLYP FIBROID, CURETTING . 01 Clinical history: . POST MENOPAUSAL BLEEDING D/C, H/S, MYOSURE . 02 Diagnosis: Endometrial curettings: - Endometrial polyp. - Disordered proliferative endometrium. - Few small segments of myometrial tissue identified showing focal stromal hyalinization. (JPM:kimberlee; 04/12/2021) S 04/12/2021 1327 Local . 02 Comment: There is no evidence of hyperplasia or malignancy. There are a few small segments of myometrial tissue identified showing focal hyalinization. These are consistent with a leiomyoma. (JPM:kimberlee; 04/12/2021) . 02 Electronically signed: . Evert Campos MD, Pathologist NPI- [id number] . 01 Gross description: . The specimen is received in formalin, labeled "Parul Diaz, endometrial polyp, fibroid, curetting". Received are multiple segments of pale crooks tissue admixed with mucoid material measuring 3.0 x 1.4 x 0.2 cm in aggregate dimensions. The specimen is filtered and entirely submitted in cassette A1. (CAA; 04/09/2021) QAC/QAC 04/09/2021 1607 Local . 02 Pathologist provided ICD-10: N84.0, N85.9 . 02 CPT . 439268 Specimen Comment: A courtesy copy of this report has been sent to [phone] Specimen Comment: Report sent to Specimen Comment: A duplicate report has been generated due to demographic updates. Performed at: 01 [facility] [address], [place] [id number] MD Xavier Saldaña MD Phone: [phone] Performed at: [address] [id number] MD Evert Campos MD Phone: [phone]
== END 2021-04-09 10:00 | disposition home or self-care (01) ==
LOC: SURG 06:30
PROVIDERS: ATTEND Obstetrics & Gynecology
DX: N95.0 Postmenopausal bleeding (principal); N84.0 Polyp of corpus uteri; N85.9 Noninflammatory disorder of uterus, unspecified; E03.9 Hypothyroidism, unspecified; I10 Essential (primary) hypertension; E78.00 Pure hypercholesterolemia, unspecified; M19.90 Unspecified osteoarthritis, unspecified site; Z98.51 Tubal ligation status; Z98.890 Other specified postprocedural states; Z87.891 Personal history of nicotine dependence; Z79.899 Other long term (current) drug therapy
CPT/HCPCS: 36415; 58558; 85025; 86850; 86900; 86901; J1100; J1885; J2250; J2405; J2704; J3010; J3490; 88305; A4930